=== PATIENT | female | born 1990 | race Caucasian/White ===

== ENCOUNTER 2016-10-24 02:27 | Inpatient (IN) | payer OTHER ==
[~2016-10-24] VITALS: Ht 170.2 cm; Wt 79.0 kg
[2016-10-24 02:45] VITALS: BP 116/65
[2016-10-24] MEDS ORDERED: OXYTOCIN 30 UNITS IN 0.9% NaCl 500ML IV BAG (J2590) As Ordered ONE (02:58)
[2016-10-24] MEDS ORDERED: LR 1,000 ML IV SCH (02:59)
[2016-10-24] MEDS ORDERED: LACTATED RINGER'S 1000 ML IV STA (02:59)
[2016-10-24 03:44] VITALS: BP 120/58
[2016-10-24] MEDS ORDERED: OXYTOCIN DRIP 30 UNITS in APPROPRIATE DILUENT 1 EA IV SCH (04:00)
[2016-10-24] MEDS ORDERED: MEASLES,MUMPS,RUBELLA VACCINE INJ (MMR-II) (90707) SC SCH (04:00)
[2016-10-24] MEDS ORDERED: DOCUSATE SODIUM 100 MG CAP PO PRN (04:00)
[2016-10-24] MEDS ORDERED: DIBUCAINE 1% OINTMENT 30GM TOP PRN (04:00)
[2016-10-24] MEDS ORDERED: METHYLERGONOVINE MALEATE 0.2 MG TAB PO PRN (04:00)
[2016-10-24] MEDS ORDERED: ACETAMINOPHEN 500 MG TAB PO PRN (04:00)
[2016-10-24] MEDS ORDERED: LIDOCAINE 1% MDV INJ 50 ML VIAL INFIL ONE (04:00)
[2016-10-24] MEDS ORDERED: METHYLERGONOVINE MALEATE 0.2 MG/ML VIAL (J2210) IM ONE (04:00)
[2016-10-24] MEDS ORDERED: RHOGAM 300 MCG (1500 IU) INJ (J2790) IM SCH (04:00)
[2016-10-24 04:07] VITALS: BP 114/63
[2016-10-24 04:21] VITALS: BP 112/59
--- NOTE | 2016-10-24 07:34 | DN ---
DATE: 10/24/2016 Mady is a 26-year-old, 2, para 2-0-0-2 now, who was admitted to labor and delivery in active labor. She progressed to full dilation at 0315. She had assisted rupture of membranes for a small amount of clear odorless fluid at 0319. She pushed to a spontaneous vaginal delivery of a live female in occiput anterior (OA) position with restitution to right occiput transverse (ROT) position at 0328. shoulders delivered spontaneously and corpus immediately followed. The was placed on the maternal abdomen crying and active. The cord was clamped times two once pulsations ceased and cut by the father of the baby. Spontaneous expulsion of an intact placenta by Patel mechanism was at 0333. Uterine hemostasis was achieved with uterine fundal massage, IV Pitocin rapid infusion and Methergine IM. Estimated blood loss 400 mL. Perineum and vagina inspected and noted to have a first-degree midline laceration. The laceration was infiltrated with 1% lidocaine and repaired with #3-0 Rapide in the usual fashion. The weighed 3180 grams, 7 pounds, with 9 and 9. Mom does plan to breastfeed her daughter and the family have named her Maris Weaver. At the close of delivery, lap counts, needle counts and instrument counts were correct and verified.
--- NOTE | 2016-10-24 07:37 | HPE ---
DATE OF ADMISSION: 10/24/2016 Mady is a 26-year-old, 2, para 1-0-0-1, at 39-6/7 weeks gestation with an estimated date of confinement (EDC) of 10/25/2016 based on first trimester ultrasound. She presents to labor and delivery today with report of tara all evening that became much more uncomfortable approximately 0100 hours this morning. She does report some positive bloody show. She denies leakage of fluid and the fetus has been active. care was initiated at an alternate care provider in the area in the first trimester with a transfer of care to [facility] in the second trimester. course has been uncomplicated. OBSTETRICAL HISTORY: March 2012, spontaneous vaginal delivery at 39 weeks gestation of a 6 pound 11 ounce male. OBSTETRICAL LABS: Blood type O+, antibody screen negative. Pap normal. Rubella immune. VDRL nonreactive. Urine culture no growth. Hepatitis B surface antigen negative. HIV negative. Hepatitis C antibody negative. Gonorrhea and Chlamydia negative. She did decline all genetic serum screening markers. Gestational diabetic screening 96 and GBS is negative. PAST MEDICAL HISTORY: Childhood varicella. Surgeries was tooth extraction. FAMILY HISTORY: Diabetes, kidney disease, thyroid dysfunction and asthma. SOCIAL HISTORY: The patient is . The is bedside and supportive. She was a smoker prior to . Reports quitting as soon as she found out she was . No current alcohol use. Denies history of drug use. Denies history of sexually transmitted diseases (STDs) and denies history of abuse physical, sexual and emotional. ALLERGIES: NO KNOWN DRUG ALLERGIES. CURRENT MEDICATIONS: - vitamin OBJECTIVE: Temperature 97.5, pulse 81, respirations 18, blood pressure 116/65. She appears uncomfortable with contractions. She is tensing and deep breathing with her contractions. heart rate is 150 with moderate variability, positive accelerations, no decelerations observed. She is tara approximately every 2-3 minutes. They do palpate strong. Her abdomen is gravid, cephalic presentation. Estimated weight 7 pounds. Sterile vaginal exam: 7 cm dilated, 100% effaced, 0 station. Membranes are intact. Normal bloody show. ASSESSMENT: Intrauterine at 39-6/7 weeks gestation, heart rate category 1, active labor. PLAN: Admit the patient to labor and delivery. Labs as ordered. Out of bed ad violette. Clear liquid diet. IV fluid bolus. The patient does desire an epidural for her labor coping. We will attempt to oblige her request. I do anticipate a normal spontaneous vaginal delivery.
[2016-10-24] MEDS: PRENATAL VITAMIN TAB PO SCH (08:42)
[2016-10-24] MEDS: IBUPROFEN 800 MG TAB PO PRN ×2 (08:44→15:38)
[2016-10-24 18:00] VITALS: BP 124/62
[2016-10-25 05:43] VITALS: BP 123/52
[2016-10-25] MEDS: PRENATAL VITAMIN TAB PO SCH (08:18)
[2016-10-25] MEDS ORDERED: IBUP-1114 PO (10:38)
[2016-10-25] MEDS ORDERED: ACET50TA PO (10:38)
== END 2016-10-25 11:45 | disposition home or self-care (01) | DRG 775 ==
LOC: M LDO 02:27 → M LDI 02:58 → M OBS 06:00 → M LDI 06:03 → M OBS 06:04
PROVIDERS: ADMIT Advanced Practice Midwife; ATTEND Advanced Practice Midwife
PROC: 10E0XZZ Delivery of Products of Conception, External Approach (ICD-10-PCS; principal; 2016-10-24)
PROC: 0HQ9XZZ Repair Perineum Skin, External Approach (ICD-10-PCS; 2016-10-24)
PROC: 10907ZC Drainage of Amniotic Fluid, Therapeutic from Products of Conception, Via Natural or Artificial Opening (ICD-10-PCS; 2016-10-24)
DX: O70.0 First degree perineal laceration during delivery (principal); Z37.0 Single live birth; Z3A.39 39 weeks gestation of pregnancy

== ENCOUNTER → 2016-11-06 | Outpatient (CLI) | payer OTHER ==
[~2016-11-06] MED LIST: ACET50TA PO; IBUP-1114 PO
== END ==
LOC: M SMT 13:34
PROVIDERS: ATTEND Family Medicine
DX: Z13.29 Encounter for screening for other suspected endocrine disorder (principal)

== ENCOUNTER → 2017-02-22 | Outpatient (REF) | payer OTHER | LOC: M SFHCLERA 10:16 | PROVIDERS: ATTEND Nurse Practitioner Family | DX: J06.9 Acute upper respiratory infection, unspecified (principal) ==